=== PATIENT | female | born 1990 | race Caucasian/White ===

== ENCOUNTER 2020-10-05 08:10 | Outpatient (CLI) | payer OTHER ==
[2020-10-09] MEDS ORDERED: PREN1TAB62 PO (05:42)
[2020-10-10] MEDS ORDERED: DOCU-131 PO (11:01)
[2020-10-10] MEDS ORDERED: ACET650S21 PO (11:01)
== END 2020-10-05 23:59 | disposition home or self-care (01) ==
LOC: STAR 08:10
PROVIDERS: ATTEND Anesthesiology
DX: Z20.822 Contact with and (suspected) exposure to COVID-19 (principal)
CPT/HCPCS: 87635